=== PATIENT | female | born 1925 | race Caucasian/White ===

== ENCOUNTER → 2016-10-13 | Outpatient (CLI) | payer MEDICARE ==
[~2016-10-13] MED LIST: ACET50TAOT PO; ALEN70TA39 PO; AMLO5TAB2 PO; ASPI81CH PO; ASPI81TA7 PO; ATEN25TA PO; CALC1TAB26 PO; CELE10TA PO; CEPH500C PO; HYDR-3713 PO; HYDR25TAB PO; IBUP800T23 PO; LOSA100T36 PO; LOSA50TA20 PO; MAGN400T2 PO; MECL-68 PO; META48.54 PO; SPIR25TA2 PO; TRAM50TA2 PO; VITA-130 PO; VITA100066 PO; VITMTA PO; [UNRECOGNIZED DRUG - CODE] PO
[2016-10-13 12:11] LABS: ANION GAP 13 MEQ/L (8-16); BLOOD UREA NITROGEN 20 MG/DL (7-18); CARBON DIOXIDE LEVEL 25 MEQ/L (21-32); CHLORIDE LEVEL 104 MEQ/L (98-107); CHOLESTEROL LEVEL 177 MG/DL (<200); CREATININE FOR GFR 0.78 MG/DL (0.55-1.02); GLOMERULAR FILTRATION RATE > 60.0 (>32); GLUCOSE, FASTING 94 MG/DL (83-110); POTASSIUM SERUM 4.4 MEQ/L (3.5-5.1); SODIUM LEVEL 142 MEQ/L (136-145); TRIGLYCERIDES LEVEL 63 MG/DL (<150)
[2016-10-13 12:18] LABS: MEAN CORPUSCULAR HEMOGLOBIN 28.1 pg (27.0-33.0); MEAN CORPUSCULAR HGB CONC 31.9 g/dl (32.0-36.5); MEAN CORPUSCULAR VOLUME 88.1 fl (80.0-96.0); PLATELET COUNT, AUTOMATED 290 k/mm3 (150-450); RED CELL DISTRIBUTION WIDTH 14.4 % (11.5-14.5); WHITE BLOOD COUNT 9.4 K/mm3 (4.0-10.0)
== END ==
LOC: M SMT 08:10
PROVIDERS: ATTEND Family Medicine
DX: E87.1 Hypo-osmolality and hyponatremia (principal); I10 Essential (primary) hypertension

== ENCOUNTER → 2017-06-05 | Outpatient (CLI) | payer MEDICARE ==
[~2017-06-05] MED LIST changes: +ASPI1TAB15 PO; -ASPI81TA7 PO; +IBUP1TAB7 PO; -IBUP800T23 PO; -VITA-130 PO; +VITA500T PO
--- NOTE | 2017-06-05 12:39 | REP ---
Chest two views HISTORY: Cough Comparison: 04/19/2016 An increase in interstitial markings is present in the lungs consistent with chronic interstitial fibrosis. Linear densities are present in the right lower lobe consistent with atelectasis or scar. The heart is normal in size. The pulmonary vasculature is normal in appearance. The bony structure is intact. IMPRESSION: 1. Chronic interstitial fibrosis. 2. Right lower lobe atelectasis or scar. Signed by Kevin Vogel MD 06/05/2017 12:30 P
[2017-06-05 15:28] LABS: BASO # 0.1 10^3/uL (0.0-0.2); BASO % 0.7 % (0.0-1.0); EOS # 0.4 10^3/uL (0.0-0.50); EOS % 3.7 % (0.0-3.0); IMMATURE GRANULOCYTE % 0.2 % (0-0); LYMPH # 3.6 10^3/uL (1.5-4.5); LYMPH % 34.6 % (24.0-44.0); MEAN CORPUSCULAR HEMOGLOBIN 28.5 pg (27.0-33.0); MEAN CORPUSCULAR HGB CONC 31.7 g/dl (32.0-36.5); MONO # 0.8 10^3/uL (0.0-0.8); MONO % 7.9 % (0.0-5.0); NEUTROPHILS # 5.5 10^3/uL (1.8-7.7); NEUTROPHILS % 52.9 % (36.0-66.0); PLATELET COUNT, AUTOMATED 285 10^3/uL (150-450); RED CELL DISTRIBUTION WIDTH 13.2 % (11.5-14.5); WHITE BLOOD COUNT 10.5 10^3/uL (4.0-10.0)
== END ==
LOC: M WUC 12:14
PROVIDERS: ATTEND Physician Assistant
DX: J84.10 Pulmonary fibrosis, unspecified (principal); J98.11 Atelectasis; R05 Cough

== ENCOUNTER 2017-09-14 06:39 | Inpatient (IN) | payer MEDICARE ==
[2017-09-14] MEDS: NS 1,000 ML IV ×2 (07:54→11:34)
[2017-09-14 08:22] LABS: BASO % 0.3 % (0.0-1.0); EOS # 0.1 10^3/uL (0.0-0.50); HEMATOCRIT 36.3 % (36.0-47.0); HEMOGLOBIN 12.1 g/dl (12.0-16.0); IMMATURE GRANULOCYTE % 0.2 % (0-0); LYMPH # 2.1 10^3/uL (1.5-4.5); LYMPH % 16.7 % (24.0-44.0); MEAN CORPUSCULAR HEMOGLOBIN 29.2 pg (27.0-33.0); MEAN CORPUSCULAR HGB CONC 33.3 g/dl (32.0-36.5); MEAN CORPUSCULAR VOLUME 87.7 fl (80.0-96.0); MONO # 0.7 10^3/uL (0.0-0.8); MONO % 5.6 % (0.0-5.0); NEUTROPHILS # 9.4 10^3/uL (1.8-7.7); NEUTROPHILS % 76.2 % (36.0-66.0); PLATELET COUNT, AUTOMATED 255 10^3/uL (150-450); RED BLOOD COUNT 4.14 10^6/uL (4.00-5.40); WHITE BLOOD COUNT 12.4 10^3/uL (4.0-10.0)
[2017-09-14] MEDS: MORPHINE 4 MG/ML 1ML SYRINGE IV (08:23)
[2017-09-14] MEDS: ONDANSETRON 4MG/2ML VIAL (J2405) IV (08:24)
[2017-09-14 08:32] LABS: INR 1.03; PROTHROMBIN TIME 13.6 SECONDS (12.4-14.5)
[2017-09-14 08:33] LABS: PARTIAL THROMBOPLASTIN TIME 40.3 SECONDS (26.8-37.9)
[2017-09-14 08:55] LABS: ANION GAP 8 MEQ/L (8-16); BLOOD UREA NITROGEN 16 MG/DL (7-18); CALCIUM LEVEL 8.9 MG/DL (8.8-10.2); CARBON DIOXIDE LEVEL 29 MEQ/L (21-32); CHLORIDE LEVEL 101 MEQ/L (98-107); CPK CREATINE PHOSPHOKINASE 108 U/L (26-192); CREATININE FOR GFR 0.79 MG/DL (0.55-1.02); GLOMERULAR FILTRATION RATE > 60.0 (>32); GLUCOSE, FASTING 108 MG/DL (83-110); POTASSIUM SERUM 4.3 MEQ/L (3.5-5.1); SODIUM LEVEL 138 MEQ/L (136-145); TROPONIN I < 0.02 NG/ML (< 0.10)
[2017-09-14] MEDS ORDERED: ONDANSETRON 4MG/2ML VIAL (J2405) IV ×2 (10:30→20:15)
[2017-09-14] MEDS ORDERED: BISACODYL 5 MG TAB PO (10:30)
[2017-09-14] MEDS ORDERED: ACETAMINOPHEN TAB 650MG DOSE (2X325MG) PO (10:30)
[2017-09-14] MEDS ORDERED: PERCOCET 5MG/325MG TAB PO ×2 (10:30)
[2017-09-14] MEDS: ceFAZolin 1GM INJ (J0690 PER 500MG) IM (11:30)
[2017-09-14] MEDS: SENOKOT S TAB PO ×2 (11:33→22:56)
[2017-09-14] MEDS: MORPHINE 2 MG/ML 1ML SYRINGE IV (12:24)
[2017-09-14] MEDS ORDERED: KETAMINE HCL 200 MG/20 ML VIAL As Ordered (18:23)
[2017-09-14] MEDS: ceFAZolin 2 GM/D5W 50 ML IV BAG (J0690 PER 500MG) As Ordered (18:50)
[2017-09-14] MEDS ORDERED: MIDAZOLAM INJ 2 MG/2 ML VIAL (J2250) As Ordered (18:55)
[2017-09-14] MEDS ORDERED: PROPOFOL 200 MG/20 ML VIAL As Ordered (19:26)
[2017-09-14] MEDS ORDERED: ePHEDrine INJ 50 MG/ML VIAL As Ordered (19:27)
[2017-09-14] MEDS ORDERED: PHENYLephrine HCL 500 MCG/5 ML (100MCG/ML) SYRINGE (J2370) As Ordered (19:27)
[2017-09-14] MEDS ORDERED: MORPHINE 10 MG/ML 1ML VIAL IV (20:15)
[2017-09-14] MEDS ORDERED: fentaNYL 100 MCG/2 ML INJECTION (J3010) IV (20:15)
[2017-09-14] MEDS: LR 1,000 ML IV (20:15)
[2017-09-14] MEDS ORDERED: ATENOLOL 25 MG TAB PO (21:00)
[2017-09-14] MEDS ORDERED: CitaloPRAM (CeleXA) 20 MG TAB PO (21:00)
[2017-09-14] MEDS: WARFARIN SOD 5 MG TAB PO (22:01)
[2017-09-14] MEDS: ACETAMINOPHEN TAB 650MG DOSE (2X325MG) PO (22:02)
[2017-09-14] MEDS: traMADol 50 MG TAB PO (22:55)
[2017-09-14] MEDS: ATENOLOL 25 MG TAB PO (22:56)
[2017-09-14] MEDS: CitaloPRAM (CeleXA) 20 MG TAB PO (22:57)
[2017-09-15 07:10] LABS: BASO % 0.4 % (0.0-1.0); EOS % 0.3 % (0.0-3.0); HEMATOCRIT 23.4 % (36.0-47.0); IMMATURE GRANULOCYTE # 0.1 10^3/uL (0-0); IMMATURE GRANULOCYTE % 0.6 % (0-0); LYMPH # 2.5 10^3/uL (1.5-4.5); LYMPH % 23.2 % (24.0-44.0); MEAN CORPUSCULAR HEMOGLOBIN 28.5 pg (27.0-33.0); MEAN CORPUSCULAR HGB CONC 32.1 g/dl (32.0-36.5); MONO # 1.1 10^3/uL (0.0-0.8); MONO % 9.9 % (0.0-5.0); NEUTROPHILS # 7.1 10^3/uL (1.8-7.7); NEUTROPHILS % 65.6 % (36.0-66.0); PLATELET COUNT, AUTOMATED 180 10^3/uL (150-450); RED BLOOD COUNT 2.63 10^6/uL (4.00-5.40); RED CELL DISTRIBUTION WIDTH 13.3 % (11.5-14.5); WHITE BLOOD COUNT 10.9 10^3/uL (4.0-10.0)
[2017-09-15 07:15] LABS: HEMOGLOBIN 7.5 g/dl (12.0-16.0)
[2017-09-15 07:31] LABS: ANION GAP 6 MEQ/L (8-16); BLOOD UREA NITROGEN 22 MG/DL (7-18); CALCIUM LEVEL 7.9 MG/DL (8.8-10.2); CARBON DIOXIDE LEVEL 28 MEQ/L (21-32); CHLORIDE LEVEL 102 MEQ/L (98-107); CREATININE FOR GFR 1.01 MG/DL (0.55-1.02); GLOMERULAR FILTRATION RATE 54.9 (>32); GLUCOSE, FASTING 100 MG/DL (70-100); POTASSIUM SERUM 4.4 MEQ/L (3.5-5.1); SODIUM LEVEL 136 MEQ/L (136-145)
[2017-09-15] MEDS: SENOKOT S TAB PO ×2 (08:49→21:39)
[2017-09-15] MEDS: MOM 30ML SUSPENSION UDC PO (08:49)
[2017-09-15] MEDS: traMADol 50 MG TAB PO (08:49)
[2017-09-15] MEDS: MIRALAX *UNIT DOSE* 17GM PACKET PO (08:49)
[2017-09-15] MEDS ORDERED: ONDANSETRON 4 MG TAB (S0181) PO (10:45)
[2017-09-15 12:04] LABS: IMMEDIATE SPIN CROSSMATCH 1 2
[2017-09-15 12:12] LABS: HEMATOCRIT 22.4 % (36.0-47.0); HEMOGLOBIN 7.3 g/dl (12.0-16.0)
[2017-09-15 12:13] LABS: RETIC HEMOGLOBIN EQUIVALENT 33.4 pg (24-36); RETICULOCYTE # 43.2 10^9/L (17-77); RETICULOCYTE % 1.7 % (0.5-1.5)
[2017-09-15 12:42] LABS: FERRITIN 58 NG/ML (8-252); IRON (FE) 22 UG/DL (50-170); PERCENT SATURATION 8.3 % (13.2-45.0); TOTAL IRON BINDING CAPACITY 266 UG/DL (250-450)
[2017-09-15 13:07] LABS: FOLATE 16.4 NG/ML (>5.4); VITAMIN B12 LEVEL 213 PG/ML (247-911)
[2017-09-15] MEDS: ACETAMINOPHEN TAB 650MG DOSE (2X325MG) PO ×2 (16:59→21:39)
[2017-09-15] MEDS: WARFARIN SOD 5 MG TAB PO (17:00)
[2017-09-15] MEDS: FERROUS GLUCONATE 324 MG TAB PO (17:49)
[2017-09-15] MEDS: ATENOLOL 25 MG TAB PO (21:39)
[2017-09-15] MEDS: CitaloPRAM (CeleXA) 20 MG TAB PO (21:40)
[2017-09-15 22:04] LABS: HEMATOCRIT 31.5 % (36.0-47.0); HEMOGLOBIN 10.8 g/dl (12.0-16.0); MEAN CORPUSCULAR HEMOGLOBIN 29.4 pg (27.0-33.0); MEAN CORPUSCULAR HGB CONC 34.3 g/dl (32.0-36.5); MEAN CORPUSCULAR VOLUME 85.8 fl (80.0-96.0); PLATELET COUNT, AUTOMATED 152 10^3/uL (150-450); RED BLOOD COUNT 3.67 10^6/uL (4.00-5.40); RED CELL DISTRIBUTION WIDTH 13.3 % (11.5-14.5); WHITE BLOOD COUNT 13.3 10^3/uL (4.0-10.0)
[2017-09-16] MEDS: ACETAMINOPHEN TAB 650MG DOSE (2X325MG) PO ×3 (04:32→21:54)
[2017-09-16 07:33] LABS: BASO % 0.3 % (0.0-1.0); EOS # 0.1 10^3/uL (0.0-0.50); EOS % 0.8 % (0.0-3.0); HEMOGLOBIN 10.9 g/dl (12.0-16.0); IMMATURE GRANULOCYTE # 0.1 10^3/uL (0-0); IMMATURE GRANULOCYTE % 0.4 % (0-0); LYMPH # 2.2 10^3/uL (1.5-4.5); LYMPH % 13.9 % (24.0-44.0); MEAN CORPUSCULAR HEMOGLOBIN 29.2 pg (27.0-33.0); MEAN CORPUSCULAR HGB CONC 34.1 g/dl (32.0-36.5); MEAN CORPUSCULAR VOLUME 85.8 fl (80.0-96.0); MONO # 1.2 10^3/uL (0.0-0.8); MONO % 7.6 % (0.0-5.0); NEUTROPHILS # 11.9 10^3/uL (1.8-7.7); PLATELET COUNT, AUTOMATED 157 10^3/uL (150-450); RED BLOOD COUNT 3.73 10^6/uL (4.00-5.40); RED CELL DISTRIBUTION WIDTH 13.6 % (11.5-14.5); WHITE BLOOD COUNT 15.5 10^3/uL (4.0-10.0)
[2017-09-16 07:46] LABS: ANION GAP 8 MEQ/L (8-16); BLOOD UREA NITROGEN 19 MG/DL (7-18); CALCIUM LEVEL 8.1 MG/DL (8.8-10.2); CARBON DIOXIDE LEVEL 25 MEQ/L (21-32); CHLORIDE LEVEL 101 MEQ/L (98-107); GLOMERULAR FILTRATION RATE > 60.0 (>32); GLUCOSE, FASTING 102 MG/DL (70-100); POTASSIUM SERUM 4.3 MEQ/L (3.5-5.1); SODIUM LEVEL 134 MEQ/L (136-145)
[2017-09-16 07:48] LABS: INR 1.88; PROTHROMBIN TIME 22.2 SECONDS (12.4-14.5)
[2017-09-16] MEDS: CYANOCOBALAMIN 500 MCG TAB PO (08:46)
[2017-09-16] MEDS: SENOKOT S TAB PO ×2 (08:46→21:53)
[2017-09-16] MEDS: VITAMIN D 1,000 INTERNATIONAL UNITS TABLET PO ×3 (08:46→21:53)
[2017-09-16] MEDS: METAMUCIL (PSYLLIUM) PACKET PO (08:47)
[2017-09-16] MEDS: CALCIUM/VITAMIN D 500 MG TAB PO ×3 (08:47→21:53)
[2017-09-16] MEDS: MULTIVITAMINS/MINERALS THERAP 1 TAB PO (08:47)
[2017-09-16] MEDS: MOM 30ML SUSPENSION UDC PO (08:47)
[2017-09-16] MEDS: FERROUS GLUCONATE 324 MG TAB PO (08:47)
[2017-09-16] MEDS: CALCIUM GLUCONATE 1,000 MG in D5W MINI-BAG PLUS 100 ML IV (08:48)
[2017-09-16] MEDS: MIRALAX *UNIT DOSE* 17GM PACKET PO (08:48)
[2017-09-16] MEDS: ASCORBIC ACID 500 MG TAB PO ×3 (08:48→21:53)
[2017-09-16] MEDS: traMADol 50 MG TAB PO (16:15)
[2017-09-16] MEDS: WARFARIN SOD 2.5 MG TAB PO (16:15)
[2017-09-16 16:19] LABS: APPEARANCE, URINE CLEAR (CLEAR); BACTERIA, URINE AUTO NEGATIVE (NEGATIVE); BILIRUBIN, URINE AUTO NEGATIVE (NEGATIVE); BLOOD, URINE BLOOD NEGATIVE (NEGATIVE); COLOR, URINE YELLOW (YELLOW); GLUCOSE, URINE (UA) AUTO NEGATIVE (NEGATIVE); KETONE, URINE AUTO NEGATIVE (NEGATIVE); LEUKOCYTE ESTERASE, URINE AUTO NEGATIVE (NEGATIVE); MUCUS, URINE SMALL (NEGATIVE); NITRITE, URINE AUTO NEGATIVE (NEGATIVE); PROTEIN, URINE AUTO NEGATIVE (NEGATIVE); RBC, URINE AUTO 0 /HPF (0-3); SPECIFIC GRAVITY URINE AUTO 1.009 (1.002-1.035); SQUAMOUS EPITHELIAL CELL UR AU 0 /HPF (0-6); UROBILINOGEN, URINE AUTO 0.2 mg/dL (0.0-2.0); WBC, URINE AUTO 0 /HPF (0-3)
[2017-09-16] MEDS: CitaloPRAM (CeleXA) 20 MG TAB PO (21:53)
[2017-09-16] MEDS: ATENOLOL 25 MG TAB PO (21:53)
[2017-09-17] MEDS: traMADol 50 MG TAB PO ×2 (05:39→16:07)
[2017-09-17 06:55] LABS: BASO % 0.3 % (0.0-1.0); EOS # 0.4 10^3/uL (0.0-0.50); EOS % 3.2 % (0.0-3.0); HEMATOCRIT 31.9 % (36.0-47.0); HEMOGLOBIN 10.7 g/dl (12.0-16.0); IMMATURE GRANULOCYTE # 0.1 10^3/uL (0-0); IMMATURE GRANULOCYTE % 0.5 % (0-0); LYMPH # 2.3 10^3/uL (1.5-4.5); MEAN CORPUSCULAR HEMOGLOBIN 29.2 pg (27.0-33.0); MEAN CORPUSCULAR HGB CONC 33.5 g/dl (32.0-36.5); MEAN CORPUSCULAR VOLUME 87.2 fl (80.0-96.0); MONO # 1.1 10^3/uL (0.0-0.8); MONO % 8.5 % (0.0-5.0); NEUTROPHILS # 8.8 10^3/uL (1.8-7.7); NEUTROPHILS % 69.5 % (36.0-66.0); PLATELET COUNT, AUTOMATED 180 10^3/uL (150-450); RED BLOOD COUNT 3.66 10^6/uL (4.00-5.40); RED CELL DISTRIBUTION WIDTH 13.4 % (11.5-14.5); WHITE BLOOD COUNT 12.7 10^3/uL (4.0-10.0)
[2017-09-17 07:08] LABS: INR 2.16; PROTHROMBIN TIME 24.9 SECONDS (12.4-14.5)
[2017-09-17 07:13] LABS: ANION GAP 5 MEQ/L (8-16); BLOOD UREA NITROGEN 15 MG/DL (7-18); CALCIUM LEVEL 8.5 MG/DL (8.8-10.2); CARBON DIOXIDE LEVEL 28 MEQ/L (21-32); CHLORIDE LEVEL 99 MEQ/L (98-107); CREATININE FOR GFR 0.79 MG/DL (0.55-1.02); GLOMERULAR FILTRATION RATE > 60.0 (>32); GLUCOSE, FASTING 101 MG/DL (70-100); POTASSIUM SERUM 4.4 MEQ/L (3.5-5.1); SODIUM LEVEL 132 MEQ/L (136-145)
[2017-09-17] MEDS ORDERED: SENOKOT S TAB PO (07:30)
[2017-09-17] MEDS ORDERED: MIRALAX *UNIT DOSE* 17GM PACKET PO (07:30)
[2017-09-17] MEDS: FERROUS GLUCONATE 324 MG TAB PO (08:55)
[2017-09-17] MEDS: VITAMIN D 1,000 INTERNATIONAL UNITS TABLET PO ×3 (08:55→20:25)
[2017-09-17] MEDS: CALCIUM/VITAMIN D 500 MG TAB PO ×3 (08:55→20:24)
[2017-09-17] MEDS: ACETAMINOPHEN TAB 650MG DOSE (2X325MG) PO ×2 (08:56→20:25)
[2017-09-17] MEDS: ASCORBIC ACID 500 MG TAB PO ×3 (08:56→20:24)
[2017-09-17] MEDS: MULTIVITAMINS/MINERALS THERAP 1 TAB PO (08:56)
[2017-09-17] MEDS: CYANOCOBALAMIN 500 MCG TAB PO (08:56)
[2017-09-17] MEDS: NS 1,000 ML IV (09:00)
[2017-09-17] MEDS: CALCIUM CARBONATE 500 MG CHEW U/D PO (11:49)
[2017-09-17] MEDS: CitaloPRAM (CeleXA) 20 MG TAB PO (20:24)
[2017-09-17] MEDS: ATENOLOL 25 MG TAB PO (20:25)
[2017-09-18] MEDS: traMADol 50 MG TAB PO ×2 (03:26→09:57)
[2017-09-18 07:04] LABS: BASO % 0.3 % (0.0-1.0); EOS # 0.5 10^3/uL (0.0-0.50); EOS % 4.2 % (0.0-3.0); HEMATOCRIT 31.2 % (36.0-47.0); HEMOGLOBIN 10.4 g/dl (12.0-16.0); IMMATURE GRANULOCYTE # 0.1 10^3/uL (0-0); IMMATURE GRANULOCYTE % 0.6 % (0-0); LYMPH % 23.6 % (24.0-44.0); MEAN CORPUSCULAR HGB CONC 33.3 g/dl (32.0-36.5); MEAN CORPUSCULAR VOLUME 86.9 fl (80.0-96.0); MONO % 7.9 % (0.0-5.0); NEUTROPHILS % 63.4 % (36.0-66.0); PLATELET COUNT, AUTOMATED 226 10^3/uL (150-450); RED BLOOD COUNT 3.59 10^6/uL (4.00-5.40); RED CELL DISTRIBUTION WIDTH 13.4 % (11.5-14.5); WHITE BLOOD COUNT 12.6 10^3/uL (4.0-10.0)
[2017-09-18 07:13] LABS: PROTHROMBIN TIME 20.5 SECONDS (12.4-14.5)
[2017-09-18 07:25] LABS: ANION GAP 7 MEQ/L (8-16); BLOOD UREA NITROGEN 14 MG/DL (7-18); CALCIUM LEVEL 8.3 MG/DL (8.8-10.2); CARBON DIOXIDE LEVEL 28 MEQ/L (21-32); CHLORIDE LEVEL 98 MEQ/L (98-107); CREATININE FOR GFR 0.73 MG/DL (0.55-1.02); GLOMERULAR FILTRATION RATE > 60.0 (>32); GLUCOSE, FASTING 93 MG/DL (70-100); POTASSIUM SERUM 3.9 MEQ/L (3.5-5.1); SODIUM LEVEL 133 MEQ/L (136-145)
[2017-09-18] MEDS: VITAMIN D 1,000 INTERNATIONAL UNITS TABLET PO (08:26)
[2017-09-18] MEDS: ASCORBIC ACID 500 MG TAB PO (08:26)
[2017-09-18] MEDS: CYANOCOBALAMIN 500 MCG TAB PO (08:26)
[2017-09-18] MEDS: FERROUS GLUCONATE 324 MG TAB PO (08:26)
[2017-09-18] MEDS: MULTIVITAMINS/MINERALS THERAP 1 TAB PO (08:26)
[2017-09-18] MEDS: CALCIUM/VITAMIN D 500 MG TAB PO (08:26)
[2017-09-18] MEDS ORDERED: NS 1,000 ML IV (10:15)
[2017-09-18] MEDS ORDERED: CALCIUM CARBONATE 500 MG CHEW U/D PO (12:30)
[2017-09-18] MEDS ORDERED: WARFARIN SOD 3 MG TAB PO (17:00)
== END 2017-09-18 10:15 | DRG 481 ==
LOC: M ED 06:39 → M ED INP 10:23 → M MS5PR 14:55
PROC: 0QS706Z Reposition Left Upper Femur with Intramedullary Internal Fixation Device, Open Approach (ICD-10-PCS; principal; 2017-09-14 18:21)
PROC: 30253N1 (ICD-10-PCS; 2017-09-14 18:21)
DX: S72.142A Displaced intertrochanteric fracture of left femur, initial encounter for closed fracture (principal); E87.1 Hypo-osmolality and hyponatremia; I10 Essential (primary) hypertension; F32.9 Major depressive disorder, single episode, unspecified; M81.0 Age-related osteoporosis without current pathological fracture; M47.26 Other spondylosis with radiculopathy, lumbar region; G62.9 Polyneuropathy, unspecified; K59.00 Constipation, unspecified; E83.51 Hypocalcemia; E53.8 Deficiency of other specified B group vitamins; R50.9 Fever, unspecified; N39.3 Stress incontinence (female) (male); E04.9 Nontoxic goiter, unspecified; W06.XXXA Fall from bed, initial encounter; Y92.013 Bedroom of single-family (private) house as the place of occurrence of the external cause; Z79.82 Long term (current) use of aspirin; Z79.899 Other long term (current) drug therapy

== ENCOUNTER 2017-09-18 10:30 | Inpatient (IN) | payer MEDICARE ==
[2017-09-18] MEDS ORDERED: BISACODYL 5 MG TAB PO (11:00)
[2017-09-18] MEDS ORDERED: MIRALAX *UNIT DOSE* 17GM PACKET PO (11:00)
[2017-09-18] MEDS: ASCORBIC ACID 500 MG TAB PO ×2 (15:04→20:39)
[2017-09-18] MEDS: LIDOCAINE 5% (LIDODERM) PATCH TD (15:04)
[2017-09-18] MEDS: CALCIUM/VITAMIN D 500 MG TAB PO ×2 (15:04→20:39)
[2017-09-18] MEDS: ACETAMINOPHEN TAB 650MG DOSE (2X325MG) PO ×2 (15:05→20:38)
[2017-09-18] MEDS: WARFARIN SOD 3 MG TAB PO (17:39)
[2017-09-18] MEDS: **NOTE PATIENT COMMENT** MISC XX ×2 (19:00→20:00)
[2017-09-18] MEDS: CitaloPRAM (CeleXA) 20 MG TAB PO (20:39)
[2017-09-18] MEDS: ATENOLOL 25 MG TAB PO (21:21)
[2017-09-19] MEDS: amLODIPine 10 MG TAB PO (04:44)
[2017-09-19] MEDS: ACETAMINOPHEN TAB 650MG DOSE (2X325MG) PO ×3 (04:45→17:04)
[2017-09-19] MEDS: LIDOCAINE 5% (LIDODERM) PATCH TD (06:22)
[2017-09-19 06:27] LABS: BASO # 0.1 10^3/uL (0.0-0.2); BASO % 0.4 % (0.0-1.0); EOS # 0.5 10^3/uL (0.0-0.50); EOS % 4.7 % (0.0-3.0); HEMATOCRIT 30.6 % (36.0-47.0); HEMOGLOBIN 10.3 g/dl (12.0-16.0); IMMATURE GRANULOCYTE # 0.1 10^3/uL (0-0); IMMATURE GRANULOCYTE % 0.8 % (0-0); LYMPH # 2.1 10^3/uL (1.5-4.5); LYMPH % 18.4 % (24.0-44.0); MEAN CORPUSCULAR HEMOGLOBIN 29.5 pg (27.0-33.0); MEAN CORPUSCULAR HGB CONC 33.7 g/dl (32.0-36.5); MEAN CORPUSCULAR VOLUME 87.7 fl (80.0-96.0); MONO # 1.1 10^3/uL (0.0-0.8); MONO % 9.6 % (0.0-5.0); NEUTROPHILS # 7.5 10^3/uL (1.8-7.7); NEUTROPHILS % 66.1 % (36.0-66.0); PLATELET COUNT, AUTOMATED 234 10^3/uL (150-450); RED BLOOD COUNT 3.49 10^6/uL (4.00-5.40); RED CELL DISTRIBUTION WIDTH 13.7 % (11.5-14.5); WHITE BLOOD COUNT 11.3 10^3/uL (4.0-10.0)
[2017-09-19 06:35] LABS: INR 1.56; PROTHROMBIN TIME 19.1 SECONDS (12.4-14.5)
[2017-09-19 06:51] LABS: ALBUMIN 2.5 GM/DL (3.2-5.2); ALBUMIN/GLOBULIN RATIO 0.63 (1.00-1.93); ALKALINE PHOSPHATASE 50 U/L (45-117); ALT/SGPT 17 U/L (12-78); ANION GAP 8 MEQ/L (8-16); AST/SGOT 28 U/L (7-37); BILIRUBIN,TOTAL 1.1 MG/DL (0.2-1.0); BLOOD UREA NITROGEN 17 MG/DL (7-18); CALCIUM LEVEL 8.4 MG/DL (8.8-10.2); CARBON DIOXIDE LEVEL 25 MEQ/L (21-32); CHLORIDE LEVEL 99 MEQ/L (98-107); CREATININE FOR GFR 0.65 MG/DL (0.55-1.02); GLOMERULAR FILTRATION RATE > 60.0 (>32); GLUCOSE, FASTING 97 MG/DL (70-100); POTASSIUM SERUM 3.9 MEQ/L (3.5-5.1); SODIUM LEVEL 132 MEQ/L (136-145); TOTAL PROTEIN 6.5 GM/DL (6.4-8.2)
[2017-09-19] MEDS: CALCIUM/VITAMIN D 500 MG TAB PO ×3 (08:42→20:51)
[2017-09-19] MEDS: VITAMIN D 1,000 INTERNATIONAL UNITS TABLET PO (08:43)
[2017-09-19] MEDS: ASCORBIC ACID 500 MG TAB PO ×3 (08:43→20:51)
[2017-09-19] MEDS: CYANOCOBALAMIN 500 MCG TAB PO (08:43)
[2017-09-19] MEDS: MULTIVITAMINS/MINERALS THERAP 1 TAB PO (08:43)
[2017-09-19] MEDS: FERROUS GLUCONATE 324 MG TAB PO (08:43)
[2017-09-19] MEDS ORDERED: ATENOLOL 25 MG TAB PO (09:00)
[2017-09-19] MEDS: WARFARIN SOD 5 MG TAB PO (16:04)
[2017-09-19] MEDS: **NOTE PATIENT COMMENT** MISC XX (19:00)
[2017-09-19] MEDS: CitaloPRAM (CeleXA) 20 MG TAB PO (20:51)
[2017-09-19] MEDS: LOSARTAN 50 MG TAB PO (20:52)
[2017-09-19] MEDS: ATENOLOL 25 MG TAB PO (20:52)
[2017-09-19] MEDS: SENOKOT S TAB PO (21:36)
[2017-09-19] MEDS: traMADol 50 MG TAB PO (21:37)
[2017-09-19 21:57] LABS: APPEARANCE, URINE HAZY (CLEAR); BACTERIA, URINE AUTO 3+ (NEGATIVE); BILIRUBIN, URINE AUTO NEGATIVE (NEGATIVE); BLOOD, URINE BLOOD NEGATIVE (NEGATIVE); COLOR, URINE YELLOW (YELLOW); GLUCOSE, URINE (UA) AUTO NEGATIVE (NEGATIVE); KETONE, URINE AUTO NEGATIVE (NEGATIVE); LEUKOCYTE ESTERASE, URINE AUTO 3+ (NEGATIVE); NITRITE, URINE AUTO POSITIVE (NEGATIVE); PROTEIN, URINE AUTO NEGATIVE (NEGATIVE); RBC, URINE AUTO 4 /HPF (0-3); SPECIFIC GRAVITY URINE AUTO 1.013 (1.002-1.035); SQUAMOUS EPITHELIAL CELL UR AU 1 /HPF (0-6); UROBILINOGEN, URINE AUTO 0.2 mg/dL (0.0-2.0); WBC, URINE AUTO 32 /HPF (0-3)
[2017-09-20 06:26] LABS: HEMATOCRIT 28.5 % (36.0-47.0); HEMOGLOBIN 9.6 g/dl (12.0-16.0); MEAN CORPUSCULAR HEMOGLOBIN 29.5 pg (27.0-33.0); MEAN CORPUSCULAR HGB CONC 33.7 g/dl (32.0-36.5); MEAN CORPUSCULAR VOLUME 87.7 fl (80.0-96.0); PLATELET COUNT, AUTOMATED 278 10^3/uL (150-450); RED BLOOD COUNT 3.25 10^6/uL (4.00-5.40); WHITE BLOOD COUNT 11.8 10^3/uL (4.0-10.0)
[2017-09-20] MEDS: LIDOCAINE 5% (LIDODERM) PATCH TD (06:28)
[2017-09-20 06:39] LABS: INR 2.08; PROTHROMBIN TIME 24.1 SECONDS (12.4-14.5)
[2017-09-20] MEDS: ACETAMINOPHEN TAB 650MG DOSE (2X325MG) PO ×2 (06:41→21:05)
[2017-09-20 06:48] LABS: ANION GAP 7 MEQ/L (8-16); BLOOD UREA NITROGEN 20 MG/DL (7-18); CALCIUM LEVEL 8.4 MG/DL (8.8-10.2); CARBON DIOXIDE LEVEL 28 MEQ/L (21-32); CHLORIDE LEVEL 100 MEQ/L (98-107); CREATININE FOR GFR 0.67 MG/DL (0.55-1.02); GLOMERULAR FILTRATION RATE > 60.0 (>32); GLUCOSE, FASTING 93 MG/DL (70-100); POTASSIUM SERUM 4.2 MEQ/L (3.5-5.1); SODIUM LEVEL 135 MEQ/L (136-145)
[2017-09-20] MEDS: CYANOCOBALAMIN 500 MCG TAB PO (08:25)
[2017-09-20] MEDS: PREVNAR 13 VACCINE SYRINGE (CPT CODE:90670) IM (08:25)
[2017-09-20] MEDS: FERROUS GLUCONATE 324 MG TAB PO (08:26)
[2017-09-20] MEDS: CALCIUM/VITAMIN D 500 MG TAB PO ×3 (08:26→21:05)
[2017-09-20] MEDS: ASCORBIC ACID 500 MG TAB PO ×3 (08:26→21:06)
[2017-09-20] MEDS: MULTIVITAMINS/MINERALS THERAP 1 TAB PO (08:26)
[2017-09-20] MEDS: VITAMIN D 1,000 INTERNATIONAL UNITS TABLET PO (08:26)
[2017-09-20] MEDS: traMADol 50 MG TAB PO (09:19)
[2017-09-20] MEDS: WARFARIN SOD 2.5 MG TAB PO (16:03)
[2017-09-20] MEDS: **NOTE PATIENT COMMENT** MISC XX (19:00)
[2017-09-20] MEDS: LOSARTAN 50 MG TAB PO (21:06)
[2017-09-20] MEDS: ATENOLOL 25 MG TAB PO (21:06)
[2017-09-20] MEDS: CitaloPRAM (CeleXA) 20 MG TAB PO (21:06)
[2017-09-21] MEDS: ACETAMINOPHEN TAB 650MG DOSE (2X325MG) PO (04:18)
[2017-09-21] MEDS: LIDOCAINE 5% (LIDODERM) PATCH TD (06:09)
[2017-09-21 08:07] LABS: HEMATOCRIT 30.2 % (36.0-47.0); HEMOGLOBIN 10.1 g/dl (12.0-16.0); MEAN CORPUSCULAR HEMOGLOBIN 29.8 pg (27.0-33.0); MEAN CORPUSCULAR HGB CONC 33.4 g/dl (32.0-36.5); MEAN CORPUSCULAR VOLUME 89.1 fl (80.0-96.0); PLATELET COUNT, AUTOMATED 325 10^3/uL (150-450); RED BLOOD COUNT 3.39 10^6/uL (4.00-5.40); RED CELL DISTRIBUTION WIDTH 14.2 % (11.5-14.5); WHITE BLOOD COUNT 11.3 10^3/uL (4.0-10.0)
[2017-09-21] MEDS: ASCORBIC ACID 500 MG TAB PO ×3 (08:15→21:08)
[2017-09-21] MEDS: traMADol 50 MG TAB PO ×3 (08:15→21:09)
[2017-09-21] MEDS: VITAMIN D 1,000 INTERNATIONAL UNITS TABLET PO (08:15)
[2017-09-21] MEDS: MULTIVITAMINS/MINERALS THERAP 1 TAB PO (08:15)
[2017-09-21] MEDS: FERROUS GLUCONATE 324 MG TAB PO (08:15)
[2017-09-21] MEDS: CYANOCOBALAMIN 500 MCG TAB PO (08:15)
[2017-09-21] MEDS: CALCIUM/VITAMIN D 500 MG TAB PO ×3 (08:15→21:08)
[2017-09-21 08:17] LABS: INR 2.17
[2017-09-21 08:32] LABS: ANION GAP 9 MEQ/L (8-16); BLOOD UREA NITROGEN 26 MG/DL (7-18); CALCIUM LEVEL 8.9 MG/DL (8.8-10.2); CARBON DIOXIDE LEVEL 28 MEQ/L (21-32); CHLORIDE LEVEL 99 MEQ/L (98-107); CREATININE FOR GFR 0.73 MG/DL (0.55-1.30); GLOMERULAR FILTRATION RATE > 60.0 (>32); GLUCOSE, FASTING 92 MG/DL (70-100); POTASSIUM SERUM 4.5 MEQ/L (3.5-5.1); SODIUM LEVEL 136 MEQ/L (136-145)
[2017-09-21] MEDS: **NOTE PATIENT COMMENT** MISC XX (18:07)
[2017-09-21] MEDS: ATENOLOL 25 MG TAB PO (21:08)
[2017-09-21] MEDS: CitaloPRAM (CeleXA) 20 MG TAB PO (21:09)
[2017-09-21] MEDS: LOSARTAN 50 MG TAB PO (21:09)
[2017-09-22] MEDS: traMADol 50 MG TAB PO ×2 (05:41→20:29)
[2017-09-22 07:31] LABS: HEMATOCRIT 29.4 % (36.0-47.0); HEMOGLOBIN 9.7 g/dl (12.0-16.0); MEAN CORPUSCULAR HEMOGLOBIN 29.4 pg (27.0-33.0); MEAN CORPUSCULAR VOLUME 89.1 fl (80.0-96.0); PLATELET COUNT, AUTOMATED 344 10^3/uL (150-450); RED CELL DISTRIBUTION WIDTH 14.5 % (11.5-14.5); WHITE BLOOD COUNT 11.8 10^3/uL (4.0-10.0)
[2017-09-22 07:37] LABS: PROTHROMBIN TIME 21.4 SECONDS (12.4-14.5)
[2017-09-22 07:44] LABS: ANION GAP 6 MEQ/L (8-16); BLOOD UREA NITROGEN 27 MG/DL (7-18); CALCIUM LEVEL 8.9 MG/DL (8.8-10.2); CARBON DIOXIDE LEVEL 28 MEQ/L (21-32); CHLORIDE LEVEL 99 MEQ/L (98-107); CREATININE FOR GFR 0.82 MG/DL (0.55-1.30); GLOMERULAR FILTRATION RATE > 60.0 (>32); GLUCOSE, FASTING 93 MG/DL (70-100); POTASSIUM SERUM 4.8 MEQ/L (3.5-5.1); SODIUM LEVEL 133 MEQ/L (136-145)
[2017-09-22] MEDS: MULTIVITAMINS/MINERALS THERAP 1 TAB PO (08:41)
[2017-09-22] MEDS: FERROUS GLUCONATE 324 MG TAB PO (08:41)
[2017-09-22] MEDS: VITAMIN D 1,000 INTERNATIONAL UNITS TABLET PO (08:41)
[2017-09-22] MEDS: CYANOCOBALAMIN 500 MCG TAB PO (08:41)
[2017-09-22] MEDS: ASCORBIC ACID 500 MG TAB PO ×3 (08:41→20:26)
[2017-09-22] MEDS: CALCIUM/VITAMIN D 500 MG TAB PO ×3 (08:41→20:27)
[2017-09-22] MEDS: LIDOCAINE 5% (LIDODERM) PATCH TD (09:37)
[2017-09-22] MEDS: LevoFLOXacin 250 MG TABLET PO (09:37)
[2017-09-22] MEDS: WARFARIN SOD 2.5 MG TAB PO (17:08)
[2017-09-22] MEDS: CitaloPRAM (CeleXA) 20 MG TAB PO (20:26)
[2017-09-22] MEDS: LOSARTAN 50 MG TAB PO (20:27)
[2017-09-22] MEDS: ATENOLOL 25 MG TAB PO (20:27)
[2017-09-22] MEDS: **NOTE PATIENT COMMENT** MISC XX (21:05)
[2017-09-23] MEDS: traMADol 50 MG TAB PO ×3 (06:01→20:31)
[2017-09-23] MEDS: LevoFLOXacin 250 MG TABLET PO (06:01)
[2017-09-23 07:15] LABS: INR 1.39; PROTHROMBIN TIME 17.4 SECONDS (12.4-14.5)
[2017-09-23] MEDS: CYANOCOBALAMIN 500 MCG TAB PO (08:25)
[2017-09-23] MEDS: LIDOCAINE 5% (LIDODERM) PATCH TD (08:25)
[2017-09-23] MEDS: ASCORBIC ACID 500 MG TAB PO ×3 (08:26→20:30)
[2017-09-23] MEDS: FERROUS GLUCONATE 324 MG TAB PO (08:26)
[2017-09-23] MEDS: CALCIUM/VITAMIN D 500 MG TAB PO ×3 (08:26→20:29)
[2017-09-23] MEDS: MULTIVITAMINS/MINERALS THERAP 1 TAB PO (08:26)
[2017-09-23] MEDS: VITAMIN D 1,000 INTERNATIONAL UNITS TABLET PO (08:26)
[2017-09-23] MEDS: WARFARIN SOD 5 MG TAB PO (16:45)
[2017-09-23] MEDS: ATENOLOL 25 MG TAB PO (20:30)
[2017-09-23] MEDS: LOSARTAN 50 MG TAB PO (20:30)
[2017-09-23] MEDS: CitaloPRAM (CeleXA) 20 MG TAB PO (20:31)
[2017-09-23] MEDS: **NOTE PATIENT COMMENT** MISC XX (20:31)
[2017-09-24] MEDS: LevoFLOXacin 250 MG TABLET PO (05:43)
[2017-09-24] MEDS: ACETAMINOPHEN TAB 650MG DOSE (2X325MG) PO ×2 (05:43→21:16)
[2017-09-24 06:59] LABS: BASO # 0.1 10^3/uL (0.0-0.2); BASO % 0.5 % (0.0-1.0); EOS # 0.2 10^3/uL (0.0-0.50); EOS % 2.3 % (0.0-3.0); HEMATOCRIT 28.6 % (36.0-47.0); HEMOGLOBIN 9.5 g/dl (12.0-16.0); IMMATURE GRANULOCYTE # 0.1 10^3/uL (0-0); IMMATURE GRANULOCYTE % 1.3 % (0-0); LYMPH % 19.9 % (24.0-44.0); MEAN CORPUSCULAR HEMOGLOBIN 29.1 pg (27.0-33.0); MEAN CORPUSCULAR HGB CONC 33.2 g/dl (32.0-36.5); MEAN CORPUSCULAR VOLUME 87.7 fl (80.0-96.0); MONO # 1.2 10^3/uL (0.0-0.8); MONO % 11.5 % (0.0-5.0); NEUTROPHILS # 6.5 10^3/uL (1.8-7.7); NEUTROPHILS % 64.5 % (36.0-66.0); PLATELET COUNT, AUTOMATED 373 10^3/uL (150-450); RED BLOOD COUNT 3.26 10^6/uL (4.00-5.40); RED CELL DISTRIBUTION WIDTH 14.5 % (11.5-14.5); WHITE BLOOD COUNT 10.1 10^3/uL (4.0-10.0)
[2017-09-24 07:12] LABS: INR 1.47; PROTHROMBIN TIME 18.2 SECONDS (12.4-14.5)
[2017-09-24 07:16] LABS: ANION GAP 8 MEQ/L (8-16); BLOOD UREA NITROGEN 30 MG/DL (7-18); CALCIUM LEVEL 8.7 MG/DL (8.8-10.2); CARBON DIOXIDE LEVEL 26 MEQ/L (21-32); CHLORIDE LEVEL 98 MEQ/L (98-107); CREATININE FOR GFR 0.83 MG/DL (0.55-1.30); GLOMERULAR FILTRATION RATE > 60.0 (>32); GLUCOSE, FASTING 91 MG/DL (70-100); POTASSIUM SERUM 4.3 MEQ/L (3.5-5.1); SODIUM LEVEL 132 MEQ/L (136-145)
[2017-09-24] MEDS: CALCIUM/VITAMIN D 500 MG TAB PO ×3 (08:19→21:15)
[2017-09-24] MEDS: ASCORBIC ACID 500 MG TAB PO ×3 (08:19→21:15)
[2017-09-24] MEDS: FERROUS GLUCONATE 324 MG TAB PO (08:19)
[2017-09-24] MEDS: MULTIVITAMINS/MINERALS THERAP 1 TAB PO (08:19)
[2017-09-24] MEDS: VITAMIN D 1,000 INTERNATIONAL UNITS TABLET PO (08:20)
[2017-09-24] MEDS: LIDOCAINE 5% (LIDODERM) PATCH TD (08:20)
[2017-09-24] MEDS: CYANOCOBALAMIN 500 MCG TAB PO (08:20)
[2017-09-24 11:15] LABS: MAGNESIUM LEVEL 1.7 MG/DL (1.8-2.4); URIC ACID 3.5 MG/DL (2.6-6.0)
[2017-09-24] MEDS ORDERED: SODIUM CHLORIDE 0.9% 1000 ML IV (14:30)
[2017-09-24 15:07] LABS: OSMOLALITY URINE 342 MOSM/KG (500-800)
[2017-09-24 16:00] LABS: CREATININE,RANDOM URINE 47.5 MG/DL; SODIUM,RANDOM URINE 41 MEQ/L
[2017-09-24] MEDS: WARFARIN SOD 3 MG TAB PO (16:27)
[2017-09-24] MEDS: **NOTE PATIENT COMMENT** MISC XX (21:00)
[2017-09-24] MEDS: LOSARTAN 50 MG TAB PO (21:15)
[2017-09-24] MEDS: CitaloPRAM (CeleXA) 20 MG TAB PO (21:15)
[2017-09-24] MEDS: ATENOLOL 25 MG TAB PO (21:15)
[2017-09-25] MEDS: LevoFLOXacin 250 MG TABLET PO (05:37)
[2017-09-25] MEDS: **hydrALAZINE HCL** 25 MG TAB PO (06:12)
[2017-09-25 07:14] LABS: HEMATOCRIT 31.6 % (36.0-47.0); HEMOGLOBIN 10.6 g/dl (12.0-16.0); MEAN CORPUSCULAR HEMOGLOBIN 29.4 pg (27.0-33.0); MEAN CORPUSCULAR HGB CONC 33.5 g/dl (32.0-36.5); MEAN CORPUSCULAR VOLUME 87.8 fl (80.0-96.0); PLATELET COUNT, AUTOMATED 432 10^3/uL (150-450); RED CELL DISTRIBUTION WIDTH 14.2 % (11.5-14.5); WHITE BLOOD COUNT 10.5 10^3/uL (4.0-10.0)
[2017-09-25 07:23] LABS: INR 1.73; PROTHROMBIN TIME 20.8 SECONDS (12.4-14.5)
[2017-09-25 07:35] LABS: ALBUMIN 2.9 GM/DL (3.2-5.2); ALBUMIN/GLOBULIN RATIO 0.71 (1.00-1.93); ALKALINE PHOSPHATASE 62 U/L (45-117); ALT/SGPT 26 U/L (12-78); ANION GAP 6 MEQ/L (8-16); AST/SGOT 30 U/L (7-37); BILIRUBIN,TOTAL 1.3 MG/DL (0.2-1.0); BLOOD UREA NITROGEN 23 MG/DL (7-18); CALCIUM LEVEL 8.4 MG/DL (8.8-10.2); CARBON DIOXIDE LEVEL 27 MEQ/L (21-32); CHLORIDE LEVEL 98 MEQ/L (98-107); CREATININE FOR GFR 0.74 MG/DL (0.55-1.30); GLOMERULAR FILTRATION RATE > 60.0 (>32); GLUCOSE, FASTING 92 MG/DL (70-100); POTASSIUM SERUM 4.3 MEQ/L (3.5-5.1); SODIUM LEVEL 131 MEQ/L (136-145)
[2017-09-25] MEDS: FERROUS GLUCONATE 324 MG TAB PO (09:02)
[2017-09-25] MEDS: VITAMIN D 1,000 INTERNATIONAL UNITS TABLET PO (09:02)
[2017-09-25] MEDS: MULTIVITAMINS/MINERALS THERAP 1 TAB PO (09:02)
[2017-09-25] MEDS: CALCIUM/VITAMIN D 500 MG TAB PO (09:02)
[2017-09-25] MEDS: ASCORBIC ACID 500 MG TAB PO (09:02)
[2017-09-25] MEDS: CYANOCOBALAMIN 500 MCG TAB PO (09:02)
[2017-09-25] MEDS: ACETAMINOPHEN TAB 650MG DOSE (2X325MG) PO (09:03)
[2017-09-25] MEDS: LIDOCAINE 5% (LIDODERM) PATCH TD (09:03)
[2017-09-25] MEDS ORDERED: WARFARIN SOD 7.5 MG TAB PO (17:00)
== END 2017-09-25 15:10 | disposition short-term general hospital (02) | DRG 559 ==
LOC: M PM&R 10:30
DX: S72.142D Displaced intertrochanteric fracture of left femur, subsequent encounter for closed fracture with routine healing (principal); I63.9 Cerebral infarction, unspecified; G83.4 Cauda equina syndrome; N39.0 Urinary tract infection, site not specified; G45.9 Transient cerebral ischemic attack, unspecified; R47.01 Aphasia; G81.91 Hemiplegia, unspecified affecting right dominant side; I25.10 Atherosclerotic heart disease of native coronary artery without angina pectoris; I10 Essential (primary) hypertension; M81.0 Age-related osteoporosis without current pathological fracture; G62.9 Polyneuropathy, unspecified; R29.810 Facial weakness; M47.26 Other spondylosis with radiculopathy, lumbar region; D51.3 Other dietary vitamin B12 deficiency anemia; E86.0 Dehydration; F03.90 Unspecified dementia, unspecified severity, without behavioral disturbance, psychotic disturbance, mood disturbance, and anxiety; W18.09XD Striking against other object with subsequent fall, subsequent encounter; D50.9 Iron deficiency anemia, unspecified; E83.51 Hypocalcemia; Y92.099 Unspecified place in other non-institutional residence as the place of occurrence of the external cause; E66.3 Overweight; H91.93 Unspecified hearing loss, bilateral; Z96.642 Presence of left artificial hip joint

== ENCOUNTER 2017-09-25 15:49 | Inpatient (IN) | payer MEDICARE ==
[2017-09-25] MEDS: NS 1,000 ML IV (16:00)
[2017-09-25 16:41] LABS: CHOLESTEROL LEVEL 145 MG/DL (<200); CHOLESTEROL RISK RATIO 2.735 (<5); CPK CREATINE PHOSPHOKINASE 182 U/L (26-192); HDL CHOLESTEROL 53 MG/DL (>40); LDL CHOLESTEROL 75.6 MG/DL (<100); NON-HDL-C 92 MG/DL; TRIGLYCERIDES LEVEL 82 MG/DL (<150); TROPONIN I < 0.02 NG/ML (< 0.10)
[2017-09-25 16:42] LABS: CK-MB VALUE MASS 6.1 NG/ML (0.0-3.6); MB/CK RELATIVE INDEX 3.35 (< OR =4)
[2017-09-25] MEDS: WARFARIN SOD 7.5 MG TAB PO (17:40)
[2017-09-25] MEDS: NITROGLYCERIN 2% OINT 1 GM *U/D* PKT TOP (17:42)
[2017-09-25] MEDS: CEFTRIAXONE SOD 1 GM in APPROPRIATE DILUENT 1 EA IV (18:27)
[2017-09-25] MEDS: levETIRAcetam INJection 500 MG in D5W MINI-BAG PLUS 100 ML IV (19:43)
[2017-09-25] MEDS: ATORVASTATIN 20 MG TAB PO (21:00)
[2017-09-25 21:59] LABS: CPK CREATINE PHOSPHOKINASE 162 U/L (26-192); TROPONIN I 0.03 NG/ML (< 0.10)
[2017-09-25 22:00] LABS: CK-MB VALUE MASS 4.8 NG/ML (0.0-3.6); MB/CK RELATIVE INDEX 2.96 (< OR =4)
[2017-09-26 04:34] LABS: BASO # 0.1 10^3/uL (0.0-0.2); BASO % 0.6 % (0.0-1.0); EOS # 0.1 10^3/uL (0.0-0.50); HEMATOCRIT 29.5 % (36.0-47.0); HEMOGLOBIN 9.9 g/dl (12.0-16.0); IMMATURE GRANULOCYTE # 0.1 10^3/uL (0-0); IMMATURE GRANULOCYTE % 0.9 % (0-0); LYMPH # 2.4 10^3/uL (1.5-4.5); LYMPH % 20.1 % (24.0-44.0); MEAN CORPUSCULAR HEMOGLOBIN 29.3 pg (27.0-33.0); MEAN CORPUSCULAR HGB CONC 33.6 g/dl (32.0-36.5); MEAN CORPUSCULAR VOLUME 87.3 fl (80.0-96.0); MONO # 1.2 10^3/uL (0.0-0.8); NEUTROPHILS # 7.9 10^3/uL (1.8-7.7); NEUTROPHILS % 67.4 % (36.0-66.0); PLATELET COUNT, AUTOMATED 403 10^3/uL (150-450); RED BLOOD COUNT 3.38 10^6/uL (4.00-5.40); RED CELL DISTRIBUTION WIDTH 14.5 % (11.5-14.5); WHITE BLOOD COUNT 11.8 10^3/uL (4.0-10.0)
[2017-09-26 04:46] LABS: INR 2.05; PROTHROMBIN TIME 23.8 SECONDS (12.4-14.5)
[2017-09-26] MEDS: NS 1,000 ML IV ×2 (04:50→17:53)
[2017-09-26 05:07] LABS: ALBUMIN 2.8 GM/DL (3.2-5.2); ALKALINE PHOSPHATASE 59 U/L (45-117); ALT/SGPT 24 U/L (12-78); ANION GAP 9 MEQ/L (8-16); AST/SGOT 29 U/L (7-37); BILIRUBIN,TOTAL 0.9 MG/DL (0.2-1.0); BLOOD UREA NITROGEN 17 MG/DL (7-18); CALCIUM LEVEL 8.1 MG/DL (8.8-10.2); CARBON DIOXIDE LEVEL 24 MEQ/L (21-32); CHLORIDE LEVEL 99 MEQ/L (98-107); CPK CREATINE PHOSPHOKINASE 159 U/L (26-192); CREATININE FOR GFR 0.63 MG/DL (0.55-1.30); GLOMERULAR FILTRATION RATE > 60.0 (>32); GLUCOSE, FASTING 84 MG/DL (70-100); MAGNESIUM LEVEL 1.7 MG/DL (1.8-2.4); MB/CK RELATIVE INDEX 3.14 (< OR =4); POTASSIUM SERUM 3.6 MEQ/L (3.5-5.1); SODIUM LEVEL 132 MEQ/L (136-145); TOTAL PROTEIN 6.8 GM/DL (6.4-8.2); TROPONIN I 0.02 NG/ML (< 0.10)
[2017-09-26] MEDS: NITROGLYCERIN 2% OINT 1 GM *U/D* PKT TOP ×3 (05:59→11:42)
[2017-09-26] MEDS: levETIRAcetam INJection 500 MG in D5W MINI-BAG PLUS 100 ML IV ×2 (06:19→17:25)
[2017-09-26] MEDS: ASPIRIN 81 MG ENTERIC TAB PO (09:42)
[2017-09-26] MEDS ORDERED: ATENOLOL 25 MG TAB PO (13:15)
[2017-09-26] MEDS: METOPROLOL TART 25 MG TABLET PO ×2 (14:01→21:40)
[2017-09-26] MEDS: WARFARIN SOD 2.5 MG TAB PO (17:26)
[2017-09-26] MEDS: CEFTRIAXONE SOD 1 GM in APPROPRIATE DILUENT 1 EA IV (17:54)
[2017-09-26] MEDS: ATORVASTATIN 20 MG TAB PO (21:38)
[2017-09-27 04:34] LABS: BASO # 0.1 10^3/uL (0.0-0.2); BASO % 0.5 % (0.0-1.0); EOS # 0.3 10^3/uL (0.0-0.50); EOS % 2.8 % (0.0-3.0); HEMATOCRIT 29.8 % (36.0-47.0); HEMOGLOBIN 9.9 g/dl (12.0-16.0); IMMATURE GRANULOCYTE # 0.1 10^3/uL (0-0); IMMATURE GRANULOCYTE % 0.7 % (0-0); LYMPH # 1.9 10^3/uL (1.5-4.5); LYMPH % 17.7 % (24.0-44.0); MEAN CORPUSCULAR HEMOGLOBIN 29.4 pg (27.0-33.0); MEAN CORPUSCULAR HGB CONC 33.2 g/dl (32.0-36.5); MEAN CORPUSCULAR VOLUME 88.4 fl (80.0-96.0); MONO # 0.9 10^3/uL (0.0-0.8); MONO % 8.6 % (0.0-5.0); NEUTROPHILS # 7.6 10^3/uL (1.8-7.7); NEUTROPHILS % 69.7 % (36.0-66.0); PLATELET COUNT, AUTOMATED 417 10^3/uL (150-450); RED BLOOD COUNT 3.37 10^6/uL (4.00-5.40); RED CELL DISTRIBUTION WIDTH 14.8 % (11.5-14.5); WHITE BLOOD COUNT 10.9 10^3/uL (4.0-10.0)
[2017-09-27 04:45] LABS: INR 2.73; PROTHROMBIN TIME 30.1 SECONDS (12.4-14.5)
[2017-09-27 04:58] LABS: ALBUMIN 2.7 GM/DL (3.2-5.2); ALBUMIN/GLOBULIN RATIO 0.73 (1.00-1.93); ALKALINE PHOSPHATASE 60 U/L (45-117); ALT/SGPT 21 U/L (12-78); ANION GAP 8 MEQ/L (8-16); AST/SGOT 27 U/L (7-37); BILIRUBIN,TOTAL 0.8 MG/DL (0.2-1.0); BLOOD UREA NITROGEN 16 MG/DL (7-18); CARBON DIOXIDE LEVEL 24 MEQ/L (21-32); CHLORIDE LEVEL 106 MEQ/L (98-107); CREATININE FOR GFR 0.67 MG/DL (0.55-1.30); GLOMERULAR FILTRATION RATE > 60.0 (>32); GLUCOSE, FASTING 87 MG/DL (70-100); MAGNESIUM LEVEL 1.7 MG/DL (1.8-2.4); SODIUM LEVEL 138 MEQ/L (136-145); TOTAL PROTEIN 6.4 GM/DL (6.4-8.2)
[2017-09-27] MEDS: levETIRAcetam INJection 500 MG in D5W MINI-BAG PLUS 100 ML IV ×2 (06:26→18:34)
[2017-09-27] MEDS: NS 1,000 ML IV (06:26)
[2017-09-27] MEDS: METOPROLOL TART 25 MG TABLET PO ×4 (06:26→21:21)
[2017-09-27 06:57] LABS: APPEARANCE, URINE CLEAR (CLEAR); BACTERIA, URINE AUTO NEGATIVE (NEGATIVE); BILIRUBIN, URINE AUTO NEGATIVE (NEGATIVE); BLOOD, URINE BLOOD NEGATIVE (NEGATIVE); COLOR, URINE YELLOW (YELLOW); GLUCOSE, URINE (UA) AUTO NEGATIVE (NEGATIVE); KETONE, URINE AUTO NEGATIVE (NEGATIVE); LEUKOCYTE ESTERASE, URINE AUTO NEGATIVE (NEGATIVE); MUCUS, URINE SMALL (NEGATIVE); NITRITE, URINE AUTO NEGATIVE (NEGATIVE); PROTEIN, URINE AUTO NEGATIVE (NEGATIVE); RBC, URINE AUTO 0 /HPF (0-3); SPECIFIC GRAVITY URINE AUTO 1.006 (1.002-1.035); SQUAMOUS EPITHELIAL CELL UR AU 0 /HPF (0-6); UROBILINOGEN, URINE AUTO 0.2 mg/dL (0.0-2.0); WBC, URINE AUTO 2 /HPF (0-3)
[2017-09-27] MEDS: ASPIRIN 81 MG ENTERIC TAB PO (09:10)
[2017-09-27] MEDS: LOSARTAN 50 MG TAB PO ×2 (09:11→13:47)
[2017-09-27] MEDS: **hydrALAZINE** 10 MG TAB PO ×3 (15:54→21:20)
[2017-09-27] MEDS: ACETAMINOPHEN TAB 650MG DOSE (2X325MG) PO (17:46)
[2017-09-27] MEDS: CEFTRIAXONE SOD 1 GM in APPROPRIATE DILUENT 1 EA IV (18:35)
[2017-09-27] MEDS: ATORVASTATIN 20 MG TAB PO ×2 (21:08→21:20)
[2017-09-27] MEDS: MAGNESIUM OXIDE 400 MG TAB (MAG-OX) PO ×2 (21:09→21:20)
[2017-09-27] MEDS: cloNIDine HCL 0.1 MG/24 HR PATCH TOP (22:20)
[2017-09-27] MEDS: MAG SULF 1GM/100ML (MAG RUN) 1 GM in APPROPRIATE DILUENT 1 EA IV (22:21)
[2017-09-27] MEDS: hydrALAZINE INJ 20 MG/ML VIAL IV (22:26)
[2017-09-28] MEDS: METOPROLOL 5 MG/5 ML VIAL IV (01:30)
[2017-09-28] MEDS: DIGOXIN INJ 0.5 MG/2 ML AMP (J1160) IV ×2 (02:05→05:09)
[2017-09-28] MEDS: hydrALAZINE INJ 20 MG/ML VIAL IV ×4 (04:30→21:30)
[2017-09-28 04:48] LABS: BASO # 0.1 10^3/uL (0.0-0.2); BASO % 0.6 % (0.0-1.0); EOS # 0.3 10^3/uL (0.0-0.50); EOS % 2.4 % (0.0-3.0); HEMATOCRIT 34.9 % (36.0-47.0); HEMOGLOBIN 11.6 g/dl (12.0-16.0); IMMATURE GRANULOCYTE # 0.1 10^3/uL (0-0); IMMATURE GRANULOCYTE % 0.8 % (0-0); LYMPH # 1.5 10^3/uL (1.5-4.5); LYMPH % 12.8 % (24.0-44.0); MEAN CORPUSCULAR HGB CONC 33.2 g/dl (32.0-36.5); MEAN CORPUSCULAR VOLUME 87.3 fl (80.0-96.0); MONO # 0.8 10^3/uL (0.0-0.8); NEUTROPHILS # 8.6 10^3/uL (1.8-7.7); NEUTROPHILS % 76.4 % (36.0-66.0); PLATELET COUNT, AUTOMATED 470 10^3/uL (150-450); RED CELL DISTRIBUTION WIDTH 14.6 % (11.5-14.5); WHITE BLOOD COUNT 11.3 10^3/uL (4.0-10.0)
[2017-09-28 04:59] LABS: ALBUMIN 2.8 GM/DL (3.2-5.2); ALBUMIN/GLOBULIN RATIO 0.64 (1.00-1.93); ALKALINE PHOSPHATASE 79 U/L (45-117); ALT/SGPT 25 U/L (12-78); ANION GAP 11 MEQ/L (8-16); AST/SGOT 28 U/L (7-37); BLOOD UREA NITROGEN 10 MG/DL (7-18); CALCIUM LEVEL 8.4 MG/DL (8.8-10.2); CARBON DIOXIDE LEVEL 21 MEQ/L (21-32); CHLORIDE LEVEL 101 MEQ/L (98-107); GLOMERULAR FILTRATION RATE > 60.0 (>32); GLUCOSE, FASTING 89 MG/DL (70-100); MAGNESIUM LEVEL 1.9 MG/DL (1.8-2.4); POTASSIUM SERUM 3.5 MEQ/L (3.5-5.1); SODIUM LEVEL 133 MEQ/L (136-145); TOTAL PROTEIN 7.2 GM/DL (6.4-8.2)
[2017-09-28 05:17] LABS: INR 2.33; PROTHROMBIN TIME 26.5 SECONDS (12.4-14.5)
[2017-09-28] MEDS: levETIRAcetam INJection 500 MG in D5W MINI-BAG PLUS 100 ML IV ×2 (05:37→17:20)
[2017-09-28] MEDS: NS 1,000 ML IV (07:45)
[2017-09-28] MEDS: ASPIRIN 81 MG ENTERIC TAB PO (08:19)
[2017-09-28] MEDS: LOSARTAN 50 MG TAB PO (08:19)
[2017-09-28] MEDS: METOPROLOL TART 25 MG TABLET PO ×2 (13:51→21:29)
[2017-09-28] MEDS: CEFTRIAXONE SOD 1 GM in APPROPRIATE DILUENT 1 EA IV (17:49)
[2017-09-28] MEDS: ATORVASTATIN 20 MG TAB PO (21:30)
[2017-09-29] MEDS: NS 1,000 ML IV ×2 (00:03→15:58)
[2017-09-29] MEDS: hydrALAZINE INJ 20 MG/ML VIAL IV ×4 (03:36→22:02)
[2017-09-29] MEDS: ACETAMINOPHEN TAB 650MG DOSE (2X325MG) PO ×2 (03:36→20:39)
[2017-09-29 05:36] LABS: BASO # 0.1 10^3/uL (0.0-0.2); BASO % 0.5 % (0.0-1.0); EOS # 0.5 10^3/uL (0.0-0.50); EOS % 4.1 % (0.0-3.0); HEMATOCRIT 30.9 % (36.0-47.0); HEMOGLOBIN 10.1 g/dl (12.0-16.0); IMMATURE GRANULOCYTE # 0.1 10^3/uL (0-0); IMMATURE GRANULOCYTE % 0.6 % (0-0); LYMPH # 1.7 10^3/uL (1.5-4.5); LYMPH % 13.3 % (24.0-44.0); MEAN CORPUSCULAR HEMOGLOBIN 29.5 pg (27.0-33.0); MEAN CORPUSCULAR HGB CONC 32.7 g/dl (32.0-36.5); MEAN CORPUSCULAR VOLUME 90.4 fl (80.0-96.0); MONO # 1.1 10^3/uL (0.0-0.8); MONO % 8.4 % (0.0-5.0); NEUTROPHILS # 9.4 10^3/uL (1.8-7.7); NEUTROPHILS % 73.1 % (36.0-66.0); PLATELET COUNT, AUTOMATED 391 10^3/uL (150-450); RED BLOOD COUNT 3.42 10^6/uL (4.00-5.40); RED CELL DISTRIBUTION WIDTH 14.7 % (11.5-14.5); WHITE BLOOD COUNT 12.8 10^3/uL (4.0-10.0)
[2017-09-29] MEDS: levETIRAcetam INJection 500 MG in D5W MINI-BAG PLUS 100 ML IV ×2 (05:38→17:07)
[2017-09-29 05:46] LABS: INR 2.19; PROTHROMBIN TIME 25.2 SECONDS (12.4-14.5)
[2017-09-29] MEDS: METOPROLOL TART 25 MG TABLET PO ×3 (05:47→22:03)
[2017-09-29 06:02] LABS: ALBUMIN 2.4 GM/DL (3.2-5.2); ALBUMIN/GLOBULIN RATIO 0.65 (1.00-1.93); ALKALINE PHOSPHATASE 67 U/L (45-117); ALT/SGPT 17 U/L (12-78); ANION GAP 7 MEQ/L (8-16); AST/SGOT 19 U/L (7-37); BILIRUBIN,TOTAL 0.7 MG/DL (0.2-1.0); BLOOD UREA NITROGEN 17 MG/DL (7-18); CALCIUM LEVEL 7.6 MG/DL (8.8-10.2); CARBON DIOXIDE LEVEL 23 MEQ/L (21-32); CHLORIDE LEVEL 105 MEQ/L (98-107); CREATININE FOR GFR 0.69 MG/DL (0.55-1.30); DIGOXIN LEVEL 1.3 NG/ML (0.5-2.0); GLOMERULAR FILTRATION RATE > 60.0 (>32); GLUCOSE, FASTING 93 MG/DL (70-100); MAGNESIUM LEVEL 1.7 MG/DL (1.8-2.4); POTASSIUM SERUM 3.9 MEQ/L (3.5-5.1); SODIUM LEVEL 135 MEQ/L (136-145); TOTAL PROTEIN 6.1 GM/DL (6.4-8.2)
[2017-09-29] MEDS: ASPIRIN 81 MG ENTERIC TAB PO (08:39)
[2017-09-29] MEDS: LOSARTAN 50 MG TAB PO (08:39)
[2017-09-29] MEDS: MAG SULF 1GM/100ML (MAG RUN) 1 GM in APPROPRIATE DILUENT 1 EA IV (08:40)
[2017-09-29 10:00] LABS: AMMONIA 17 uMOL/L (<32)
[2017-09-29 10:32] LABS: VITAMIN B12 LEVEL 358 PG/ML (247-911)
[2017-09-29] MEDS: WARFARIN SOD 2.5 MG TAB PO (17:06)
[2017-09-29] MEDS: ATORVASTATIN 20 MG TAB PO (20:39)
[2017-09-30] MEDS: hydrALAZINE INJ 20 MG/ML VIAL IV ×2 (04:00→09:34)
[2017-09-30 05:26] LABS: BASO # 0.1 10^3/uL (0.0-0.2); BASO % 0.6 % (0.0-1.0); EOS # 0.6 10^3/uL (0.0-0.50); EOS % 5.8 % (0.0-3.0); HEMATOCRIT 30.3 % (36.0-47.0); IMMATURE GRANULOCYTE # 0.1 10^3/uL (0-0); IMMATURE GRANULOCYTE % 0.5 % (0-0); LYMPH % 18.9 % (24.0-44.0); MEAN CORPUSCULAR HEMOGLOBIN 29.1 pg (27.0-33.0); MEAN CORPUSCULAR VOLUME 88.1 fl (80.0-96.0); MONO # 0.9 10^3/uL (0.0-0.8); MONO % 8.3 % (0.0-5.0); NEUTROPHILS # 6.9 10^3/uL (1.8-7.7); NEUTROPHILS % 65.9 % (36.0-66.0); PLATELET COUNT, AUTOMATED 432 10^3/uL (150-450); RED BLOOD COUNT 3.44 10^6/uL (4.00-5.40); RED CELL DISTRIBUTION WIDTH 14.7 % (11.5-14.5); WHITE BLOOD COUNT 10.4 10^3/uL (4.0-10.0)
[2017-09-30 05:33] LABS: INR 2.01; PROTHROMBIN TIME 23.5 SECONDS (12.4-14.5)
[2017-09-30 05:42] LABS: ALBUMIN 2.6 GM/DL (3.2-5.2); ALBUMIN/GLOBULIN RATIO 0.74 (1.00-1.93); ALKALINE PHOSPHATASE 74 U/L (45-117); ALT/SGPT 16 U/L (12-78); ANION GAP 9 MEQ/L (8-16); AST/SGOT 15 U/L (7-37); BILIRUBIN,TOTAL 0.7 MG/DL (0.2-1.0); BLOOD UREA NITROGEN 17 MG/DL (7-18); CALCIUM LEVEL 7.9 MG/DL (8.8-10.2); CARBON DIOXIDE LEVEL 23 MEQ/L (21-32); CHLORIDE LEVEL 107 MEQ/L (98-107); CREATININE FOR GFR 0.56 MG/DL (0.55-1.30); GLOMERULAR FILTRATION RATE > 60.0 (>32); GLUCOSE, FASTING 86 MG/DL (70-100); MAGNESIUM LEVEL 1.8 MG/DL (1.8-2.4); POTASSIUM SERUM 3.8 MEQ/L (3.5-5.1); SODIUM LEVEL 139 MEQ/L (136-145); TOTAL PROTEIN 6.1 GM/DL (6.4-8.2)
[2017-09-30] MEDS: METOPROLOL TART 25 MG TABLET PO ×2 (05:59→11:16)
[2017-09-30] MEDS: levETIRAcetam INJection 500 MG in D5W MINI-BAG PLUS 100 ML IV (06:02)
[2017-09-30] MEDS: NS 1,000 ML IV (07:37)
[2017-09-30] MEDS: LOSARTAN 50 MG TAB PO (09:34)
[2017-09-30] MEDS: ASPIRIN 81 MG ENTERIC TAB PO (09:34)
[2017-09-30] MEDS ORDERED: WARFARIN SOD 2.5 MG TAB PO (17:00)
== END 2017-09-30 12:40 | DRG 71 ==
LOC: M ICU 15:49 → M PCU 09-28 17:40
DX: G93.41 Metabolic encephalopathy (principal); I48.4 Atypical atrial flutter; N39.0 Urinary tract infection, site not specified; I47.1 Supraventricular tachycardia; I10 Essential (primary) hypertension; F32.9 Major depressive disorder, single episode, unspecified; M81.0 Age-related osteoporosis without current pathological fracture; D51.9 Vitamin B12 deficiency anemia, unspecified; D50.9 Iron deficiency anemia, unspecified; R56.9 Unspecified convulsions; F03.90 Unspecified dementia, unspecified severity, without behavioral disturbance, psychotic disturbance, mood disturbance, and anxiety; H91.93 Unspecified hearing loss, bilateral; S72.142D Displaced intertrochanteric fracture of left femur, subsequent encounter for closed fracture with routine healing; E78.5 Hyperlipidemia, unspecified; I16.0 Hypertensive urgency; M47.27 Other spondylosis with radiculopathy, lumbosacral region; E83.51 Hypocalcemia; Z79.01 Long term (current) use of anticoagulants; Z79.899 Other long term (current) drug therapy; Z88.5 Allergy status to narcotic agent; Z88.1 Allergy status to other antibiotic agents; W18.09XD Striking against other object with subsequent fall, subsequent encounter; Y92.009 Unspecified place in unspecified non-institutional (private) residence as the place of occurrence of the external cause